=== PATIENT | male | born 1965 | race African-American/Black ===

== ENCOUNTER 2020-10-20 14:56 | Outpatient (REF) | payer OTHER, SELFPAY ==
--- NOTE | ~2020-10-20 | XR_ITS ---
EXAMINATION: XR SHOULDER, LEFT XR SHOULDER, RIGHT CLINICAL INFORMATION: Bilateral shoulder pain. COMPARISON: None TECHNIQUE: Four views of each shoulder. FINDINGS: LEFT SHOULDER: Four views of the left shoulder do not demonstrate any evidence of acute fracture or dislocation. No evidence of calcific tendinitis. There is minimal spurring inferior glenohumeral joint. Acromioclavicular joint appears unremarkable. RIGHT SHOULDER: Four views of the right shoulder do not demonstrate any evidence of acute fracture or dislocation. No calcific tendinitis. Acromioclavicular joint appears unremarkable. No widening of the coracoclavicular space is seen. XR/XR shoulder LT min 2V IMPRESSION: No significant bony abnormality of the left or right shoulder.
--- NOTE | ~2020-10-20 | XR_ITS ---
EXAMINATION: XR SHOULDER, LEFT XR SHOULDER, RIGHT CLINICAL INFORMATION: Bilateral shoulder pain. COMPARISON: None TECHNIQUE: Four views of each shoulder. FINDINGS: LEFT SHOULDER: Four views of the left shoulder do not demonstrate any evidence of acute fracture or dislocation. No evidence of calcific tendinitis. There is minimal spurring inferior glenohumeral joint. Acromioclavicular joint appears unremarkable. RIGHT SHOULDER: Four views of the right shoulder do not demonstrate any evidence of acute fracture or dislocation. No calcific tendinitis. Acromioclavicular joint appears unremarkable. No widening of the coracoclavicular space is seen. XR/XR shoulder RT min 2V IMPRESSION: No significant bony abnormality of the left or right shoulder.
== END 2020-10-20 14:57 | disposition home or self-care (01) ==
LOC: HO.HMGCX 14:56
PROVIDERS: PCP Internal Medicine; Visit Provider Internal Medicine
DX: M25.511 Pain in right shoulder (principal); M25.512 Pain in left shoulder
CPT/HCPCS: 73030

== ENCOUNTER 2021-01-07 08:00 | Outpatient (RCR) | payer OTHER, SELFPAY ==
--- NOTE | 2020-11-17 15:49 | MHC.PT.EP ---
[facility] [place] Office [place] Office [place] Office [address] Ella Lofton [address] [phone] F: [phone] F: [phone] F: [phone] F: [phone] Physical Therapy Plan of Care Date of Evaluation: Date of Surgery: Diagnosis: This is 55 yo male presenting to skilled PT with a script for B shoulder pain Assessment: Patient complains of B shoulder pain, R > L on and off for the past 4 months. He denies injury. Pain increases with use and when sleeping. Pain is located at the R anterior shoulder/GHJ (sometimes sharp and sometimes achy) and can radiate into the forearm at times (numbness). Denies hand symptoms. RHD. He reports that he attempts some exercises such as bicep curls and push ups and this bothers him. Assessment reveals pain that ranges up to a 6/10 (R shoulder mainly). He demos decreased B shoulder ROM, decreased R shoulder and scapular strength, impaired GHJ mobility with decreased postural awareness (anterior GHJ, rounded shoulders and forward head) as well as gross functional decline with reaching [place], work related tasks (driving) and sleeping at night. He is a good candidate for skilled PT 2x/wk for 5wks. Frequency and Duration: The patient will be seen 2x/wk for 5wks Short Term Goals: I in HEP Improve AROM by at least 10 degs Demo proper SRD with posture and ther-ex program Retirement Goals: Tolerate sleeping on his R side without pain or waking from symptoms 5/5 shoulder and scapular strength Improve SPADI by 10 points Treatment Plan: Modalities to reduce pain, spasms and effusion. Manual therapy to restore motion and function. Therapeutic exercise to improve strength and flexibility. Neuromuscular re-education for posture and balance. Therapeutic activities to return to functional activities of daily living. Electronically signed by: Nilsa Ibrahim PT Please sign and return to therapist. Thank you for your referral.
--- NOTE | 2021-01-07 08:52 | MHC.PT.DC ---
[facility] [place] Office [place] [facility] [place] Office [address] Ella Lofton [address] [phone] F: [phone] F: [phone] F: [phone] F: [phone] Physical Therapy Discharge Report Diagnosis: This is 55 yo male presenting to skilled PT with a script for B shoulder pain Date of Surgery: Date of Evaluation: 11/17/20 Date of Discharge: 01/07/21 Treatments to Date: 6 Cancellations to Date: 0 No Shows to Date: 0 Discharge Status: Achieved Goals Improved Function Independent with HEP Patient Elected to Stop Discharge Summary: 01/07: Patient demos good ROM and strengthening. He has HEP to continue at home. In general he is improving and ready for DC. Pain has improved and he has improved his posture at work. DC to HEP. Electronically signed by: Nilsa Ibrahim PT Please sign and return to therapist. Thank you for your referral.
== END 2021-03-02 09:03 | disposition home or self-care (01) ==
LOC: HO.PTCHIC 08:00
PROVIDERS: PCP Internal Medicine; Visit Provider Internal Medicine
DX: M25.511 Pain in right shoulder (principal); M25.512 Pain in left shoulder
CPT/HCPCS: 97014; 97110; 97140; 97162

== ENCOUNTER 2021-04-13 08:00 | Outpatient (RCR) | payer OTHER, SELFPAY ==
--- NOTE | 2021-03-02 09:51 | MHC.PT.EP ---
[facility] [place] Office [place] Office [place] Office [address] Lofton [address] [phone] F: [phone] F: [phone] F: [phone] F: [phone] Physical Therapy Plan of Care Date of Evaluation: Date of Surgery: Diagnosis: This is a 55 yo male presenting to skilled PT with a script for pain in R knee Assessment: This is a 55 yo male presenting to skilled PT with a script for pain in R knee. Patient complains of right knee pain after he twisted it walking down the stairs about 2 weeks ago. He reports that the MD wanted to remove fluid but patient reports he was too nervous. Pain is located across the anterior aspect but mainly medially, described as achiness. Pain increases with standing, walking; any weightbearing. He reports that he wakes from pain on occasion and has some numbness at the posterior aspect of the knee. He has been doing stairs laterally. He also has a R shoulder injury (through work, seeing ortho for this). Assessment reveals pain that ranges up to a 8/10. He demos decreased knee and hip ROM, decreased knee and hip strength, impaired gait pattern, impaired joint mobility with excessive fluid noted as well as gross functional decline with weightbearing activities including stairs, walking and standing. He is a good candidate for skilled PT 2x/wk for 5wks. Frequency and Duration: The patient will be seen 2x/wk for 5wks Short Term Goals: I in HEP Demo full knee ROM Improve swelling to normal B Group Home Goals: Improve hip and knee strength to at least 5/5 Return to work in full Demo proper squat and lift techniques without pain Sleep through the night without waking from pain Treatment Plan: Modalities to reduce pain, spasms and effusion. Manual therapy to restore motion and function. Therapeutic exercise to improve strength and flexibility. Neuromuscular re-education for posture and balance. Therapeutic activities to return to functional activities of daily living. Electronically signed by: Nilsa Ibrahim PT Please sign and return to therapist. Thank you for your referral.
--- NOTE | 2021-04-20 07:45 | MHC.PT.DC ---
[facility] [place] Office [place] Office [place] Office [address] Ella Lofton [address] [phone] F: [phone] F: [phone] F: [phone] F: [phone] Physical Therapy Discharge Report Diagnosis: This is a 55 yo male presenting to skilled PT with a script for pain in R knee Date of Surgery: Date of Evaluation: 03/02/21 Date of Discharge: 04/13/21 Treatments to Date: 6 Cancellations to Date: 0 No Shows to Date: 0 Discharge Status: Achieved Goals Improved Function Independent with HEP Patient Elected to Stop Discharge Summary: Patient reporting to PT ready for DC as he would like to start working on his shoulder. His knee has improved in terms of swelling and edema, ROM (WNL flexion and extension), strength of hip and knee WFL and patella mobility which has improved in tracking and joint stability. He is I in his HEP and demos a normal gait pattern. DC to HEP and patient to return to clinic for evaluation of his shoulder. Electronically signed by: Nilsa Ibrahim, PT Please sign and return to therapist. Thank you for your referral.
== END 2021-04-20 07:45 | disposition home or self-care (01) ==
LOC: HO.PTCHIC 08:00
PROVIDERS: PCP Internal Medicine; Visit Provider Internal Medicine
DX: M25.561 Pain in right knee (principal)
CPT/HCPCS: 97110; 97140; 97162

== ENCOUNTER 2021-05-05 08:06 | Outpatient (REF) | payer OTHER, SELFPAY ==
[2021-05-05 11:26] LABS: Hematocrit 41.7 % (42.0-52.0); Hemoglobin 13.4 g/dl (14.0-18.0); Mean Corpuscular HGB Conc 32.1 g/dl (31.0-36.0); Mean Corpuscular Hemoglobin 27.5 pg (27.0-33.0); Mean Corpuscular Volume 85.5 fL (80.0-98.0); Mean Platelet Volume 12.3 fL (9.4-12.4); Platelet Count 179 X10*3/uL (160-400); Red Blood Count 4.88 X10*6/uL (4.60-5.80); Red Cell Distribution Width 14.6 % (11.0-16.0); White Blood Count 3.1 X10*3/uL (4.8-10.8)
[2021-05-05 11:36] LABS: Appearance Urine CLEAR; Color Urine YELLOW; Glucose Urine UA NEG (NEG); Leukocyte Esterase Urine NEG (NEG); Nitrite Urine NEG (NEG); Specific Gravity - Urine 1.025 (1.005-1.025); Urine Blood NEG (NEG); Urine Ketones NEG (NEG); Urine Protein NEG (NEG-TRACE)
[2021-05-05 11:54] LABS: RBC Urine 0-2 /HPF (0); WBC Urine 0 /HPF (0-4)
[2021-05-05 13:00] LABS: CT PCR NOT DETECTED (Not Detect.); NG PCR NOT DETECTED (Not Detect.)
[2021-05-05 14:08] LABS: Alanine Aminotransferase 46 U/L (0-40); Albumin Level 4.1 g/dL (3.5-5.0); Alkaline Phosphatase 75 U/L (39-117); Anion Gap 10 (12-20); Aspartate Amino Transferase 30 U/L (5-37); Bilirubin Total 0.6 mg/dL (0.0-1.0); Carbon Dioxide 29 mmol/L (22-29); Chloride 104 mmol/L (96-108); Cholesterol 213 mg/dL; Estimated Glomerular Filt Rate > 60; Glucose Fasting 113 mg/dL (60-99); HDL Cholesterol 39 mg/dL; LDL Cholesterol Calculated 141 mg/dl; Sodium 139 mmol/L (135-145); Total Protein 8.2 g/dL (6.5-8.0); Triglycerides 167 mg/dL
[2021-05-05 14:27] LABS: Prostate Specific Antigen Scr 0.12 ng/mL (<0.05-4.0)
[2021-05-05 15:01] LABS: Blood Urea Nitrogen 10 mg/dL (9-16); Calcium 9.7 mg/dL (8.4-10.2); Potassium 4.1 mmol/L (3.3-5.1)
[2021-05-06 09:50] LABS: HIV AB/AG Nonreactive (Nonreactive); HIV Num 1 0.07 S/CO (0.00-0.99)
[2021-05-07 08:45] LABS: Syphilis Screen Reactive (Nonreactive)
[2021-05-14 13:19] LABS: T.Pallidum Particle Agg Test Reactive (Nonreactive)
[2021-06-09 10:03] LABS: RPR Quantitative Reactive 1:8 (Nonreactive)
== END 2021-05-05 08:07 | disposition home or self-care (01) ==
LOC: HO.HMGCLDS 08:06
PROVIDERS: PCP Internal Medicine; Visit Provider Internal Medicine
DX: Z00.00 Encounter for general adult medical examination without abnormal findings (principal)
CPT/HCPCS: 36415; 80053; 80061; 81001; 84153; 85027; 86592; 86780; 87389; 87491; 87591

== ENCOUNTER 2021-05-21 09:45 | Outpatient (REF) | payer OTHER, SELFPAY | END 2021-05-21 09:46 | disposition home or self-care (01) | LOC: HO.MDS 09:45 | PROVIDERS: PCP Internal Medicine; Visit Provider Internal Medicine | DX: A53.9 Syphilis, unspecified (principal) | CPT/HCPCS: 96372; J0561 ==

== ENCOUNTER 2021-05-28 09:20 | Outpatient (REF) | payer OTHER, SELFPAY | END 2021-05-28 09:21 | disposition home or self-care (01) | LOC: HO.MDS 09:20 | PROVIDERS: Visit Provider Internal Medicine | DX: A53.9 Syphilis, unspecified (principal) | CPT/HCPCS: 96372; J0561 ==

== ENCOUNTER 2021-06-04 09:20 | Outpatient (REF) | payer OTHER, SELFPAY | END 2021-06-04 09:21 | disposition home or self-care (01) | LOC: HO.MDS 09:20 | PROVIDERS: Visit Provider Internal Medicine | DX: A53.9 Syphilis, unspecified (principal) | CPT/HCPCS: 96372; J0561 ==

== ENCOUNTER 2021-08-11 14:58 | Outpatient (REF) | payer OTHER, SELFPAY ==
[2021-08-11 16:50] LABS: Alanine Aminotransferase 20 U/L (0-40); Albumin Level 4.2 g/dL (3.5-5.0); Alkaline Phosphatase 57 U/L (39-117); Anion Gap 14 (12-20); Aspartate Amino Transferase 20 U/L (5-37); Bilirubin Total 0.6 mg/dL (0.0-1.0); Blood Urea Nitrogen 11 mg/dL (9-16); Carbon Dioxide 27 mmol/L (22-29); Chloride 106 mmol/L (96-108); Cholesterol 203 mg/dL; Estimated Glomerular Filt Rate > 60; Glucose Fasting 101 mg/dL (60-99); HDL Cholesterol 38 mg/dL; LDL Cholesterol Calculated 130 mg/dl; Potassium 4.8 mmol/L (3.3-5.1); Sodium 142 mmol/L (135-145); Total Protein 8.2 g/dL (6.5-8.0); Triglycerides 178 mg/dL
[2021-08-11 16:55] LABS: Estimated Average Glucose 126 mg/dL
[2021-08-12 08:53] LABS: HIV AB/AG Nonreactive (Nonreactive)
[2021-08-12 09:08] LABS: HIV Num 1 0.06 S/CO (0.00-0.99)
== END 2021-08-11 14:59 | disposition home or self-care (01) ==
LOC: HO.HMGCLDS 14:58
PROVIDERS: PCP Internal Medicine; Visit Provider Internal Medicine
DX: Z00.01 Encounter for general adult medical examination with abnormal findings (principal); Z11.4 Encounter for screening for human immunodeficiency virus [HIV]; E78.5 Hyperlipidemia, unspecified; A53.9 Syphilis, unspecified
CPT/HCPCS: 36415; 80053; 80061; 83036; 87389

== ENCOUNTER 2021-10-22 15:16 | Outpatient (REF) | payer OTHER, SELFPAY ==
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
--- NOTE | ~2021-10-22 | XR_ITS ---
EXAMINATION: XR FOOT, LEFT CLINICAL INFORMATION: Pain. COMPARISON: None TECHNIQUE: AP, lateral, and oblique views of the left foot. FINDINGS: No acute fracture or malalignment. No significant degenerative changes. Mild diffuse nonspecific soft tissue swelling. No unexpected radiopaque foreign bodies. XR/XR foot LT min 3V IMPRESSION: No acute osseous abnormality. Nonspecific soft tissue swelling.
== END 2021-10-22 15:17 | disposition home or self-care (01) ==
LOC: HO.HMGCX 15:16
DX: R52 Pain, unspecified (principal)
CPT/HCPCS: 73564; 73630

== ENCOUNTER 2021-11-09 12:11 | Outpatient (REF) | payer OTHER, SELFPAY ==
[2021-11-10 06:07] LABS: Syphilis Screen Reactive (Nonreactive)
[2021-11-18 10:53] LABS: RPR Quantitative Non-Reactive (Nonreactive); T.Pallidum Particle Agg Test Reactive (Nonreactive)
== END 2021-11-09 12:12 | disposition home or self-care (01) ==
LOC: HO.HMGCLDS 12:11
PROVIDERS: PCP Internal Medicine; Visit Provider Internal Medicine
DX: A53.9 Syphilis, unspecified (principal)
CPT/HCPCS: 36415; 86592; 86780

== ENCOUNTER 2022-04-15 10:40 | Outpatient (REF) | payer OTHER, SELFPAY ==
--- NOTE | ~2022-04-15 | XR_ITS ---
EXAMINATION: XR HAND, RIGHT CLINICAL INFORMATION: Suspected foreign body of right hand COMPARISON: None TECHNIQUE: PA, lateral, and oblique views of the right hand. FINDINGS: Bones have normal alignment within the hand and wrist. No acute fracture or subluxation. The joint spaces are normal. No focal soft tissue swelling or radiopaque foreign body. XR/XR hand RT min 3V IMPRESSION: Normal right hand. No radiopaque foreign body.
== END 2022-04-15 10:41 | disposition home or self-care (01) ==
LOC: HO.HMGCLDS 10:40
PROVIDERS: PCP Internal Medicine; Visit Provider Internal Medicine
DX: S60.551A Superficial foreign body of right hand, initial encounter (principal); X58.XXXA Exposure to other specified factors, initial encounter; Y93.9 Activity, unspecified; Y92.9 Unspecified place or not applicable; Y99.9 Unspecified external cause status
CPT/HCPCS: 73130

== ENCOUNTER 2022-06-02 10:05 | Outpatient (REF) | payer OTHER, SELFPAY ==
[2022-06-02 11:25] LABS: MANUAL DIFF FLAG NO
[2022-06-02 11:45] LABS: Appearance Urine Clear; Color Urine Yellow; Glucose Urine UA Negative (Negative); Leukocyte Esterase Urine Negative (Negative); Nitrite Urine Negative (Negative); PH 6.5 (5.0-9.0); Urine Blood Negative (Negative); Urine Ketones Negative (Negative); Urine Protein Negative (Neg-Trace)
[2022-06-02 11:49] LABS: Bacteria Urine None Seen (None Seen); Hyaline Casts Urine 0-2 /LPF (0-2); RBC Urine 0-2 /HPF (0-2); Squamous Epithelial Cell Urine 0-2 /HPF (0-2); WBC Urine 0-5 /HPF (0-5)
[2022-06-02 12:01] LABS: Basophils Percent Auto 0.2 % (0-2); Eosinophils Percent Auto 0.7 % (0-4); Hemoglobin 13.7 g/dl (14.0-18.0); Lymphocytes Absolute Auto 1.9 X10*3/uL (1.2-4.9); Lymphocytes Percent Auto 44.6 % (20-40); Mean Corpuscular HGB Conc 32.6 g/dl (31.0-36.0); Mean Corpuscular Hemoglobin 27.8 pg (27.0-33.0); Mean Corpuscular Volume 85.2 fL (80.0-98.0); Mean Platelet Volume 12.3 fL (9.4-12.4); Monocytes Absolute Auto 0.3 X10*3/uL (0.1-1.2); Monocytes Percent Auto 6.7 % (2-11); Neutrophils Percent Auto 47.8 % (45-73); Platelet Count 221 X10*3/uL (160-400); Red Blood Count 4.93 X10*6/uL (4.60-5.80); Red Cell Distribution Width 13.7 % (11.0-16.0); White Blood Count 4.2 X10*3/uL (4.8-10.8)
[2022-06-02 12:17] LABS: Estimated Average Glucose 126 mg/dL
[2022-06-02 16:34] LABS: Alanine Aminotransferase 14 U/L (0-40); Albumin Level 4.1 g/dL (3.5-5.0); Alkaline Phosphatase 58 U/L (39-117); Anion Gap 16 (12-20); Aspartate Amino Transferase 17 U/L (5-37); Bilirubin Total 0.6 mg/dL (0.0-1.0); Blood Urea Nitrogen 14 mg/dL (9-16); Calcium 9.5 mg/dL (8.4-10.2); Carbon Dioxide 26 mmol/L (22-29); Chloride 104 mmol/L (96-108); Cholesterol 196 mg/dL; Estimated Glomerular Filt Rate > 60; Glucose Fasting 99 mg/dL (60-99); HDL Cholesterol 42 mg/dL; LDL Cholesterol Calculated 135 mg/dl; PSA,Total (Free>4and<10) 0.16 ng/mL (0.00-4.00); Potassium 4.1 mmol/L (3.3-5.1); Sodium 142 mmol/L (135-145); Total Protein 7.6 g/dL (6.5-8.0); Triglycerides 98 mg/dL
[2022-06-03 05:09] LABS: HIV AB/AG Nonreactive (Nonreactive)
[2022-06-03 05:40] LABS: Syphilis Screen Reactive (Nonreactive)
[2022-06-11 12:02] LABS: RPR Quantitative Non-Reactive (Nonreactive); T.Pallidum Particle Agg Test Reactive (Nonreactive)
== END 2022-06-02 10:06 | disposition home or self-care (01) ==
LOC: HO.HMGCLDS 10:05
PROVIDERS: PCP Internal Medicine; Visit Provider Internal Medicine
DX: Z12.5 Encounter for screening for malignant neoplasm of prostate (principal); A53.9 Syphilis, unspecified; R73.9 Hyperglycemia, unspecified; E78.5 Hyperlipidemia, unspecified
CPT/HCPCS: 36415; 80053; 80061; 81001; 83036; 84153; 85025; 86592; 86780; 87389

== ENCOUNTER 2022-09-20 08:00 | Outpatient (REF) | payer OTHER, SELFPAY ==
--- NOTE | ~2022-09-20 | XR_ITS ---
EXAMINATION: XR FOOT, RIGHT CLINICAL INFORMATION: Superficial foreign body. COMPARISON: None available. TECHNIQUE: AP, lateral, and oblique views of the right foot. FINDINGS: There is no acute fracture or dislocation. The joint spaces are unremarkable. The tarsal bones are normally aligned. A curvilinear radiopaque foreign body measuring approximately 6 mm is seen in the superficial plantar soft tissues apparently superficial to the level the distal head of the fifth metatarsal without surrounding abnormality. XR/XR foot RT min 3V IMPRESSION: 1. No acute osseous abnormality. No significant degenerative changes. 2. 6 mm curvilinear radiopaque foreign body in the superficial plantar soft tissues apparently superficial to the distal head of the fifth metatarsal.
--- NOTE | ~2022-09-20 | XR_ITS ---
EXAMINATION: XR FOOT, RIGHT CLINICAL INFORMATION: Superficial foreign body. COMPARISON: None available. TECHNIQUE: AP, lateral, and oblique views of the right foot. XR/XR foot RT 2V FINDINGS/IMPRESSION: The radiopaque foreign body seen in the oblique projection on the previous study is no longer visualized however the curvilinear density seen in the lateral projection appears similar. It is unclear if this is a second foreign body. Correlate with physical exam
== END 2022-09-20 08:01 | disposition home or self-care (01) ==
LOC: HO.HMGCX 08:00
PROVIDERS: PCP Internal Medicine; Visit Provider Internal Medicine
DX: S90.851A Superficial foreign body, right foot, initial encounter (principal); X58.XXXA Exposure to other specified factors, initial encounter; Y93.9 Activity, unspecified; Y92.9 Unspecified place or not applicable; Y99.9 Unspecified external cause status
CPT/HCPCS: 73620; 73630

== ENCOUNTER 2022-10-17 14:08 | Outpatient (AMB) | payer OTHER, SELFPAY ==
--- NOTE | 2022-10-17 14:59 | MHC.OFFWIV ---
Intake Vital Signs 10/17/22 15:00 Height 5 ft 11 in BP 112/70 Blood Pressure Location Lt brachial Pulse 96 Pulse Source Pulse Oximeter Temp 96.7 F L Temp Source Temporal Artery Scan Pulse Oximetry (%) 98 Oxygen Delivery Method Room Air Intake Visit Reasons: EST/left knee pain/[phone] Patient Tobacco Use Status: Never used Tobacco Allergies No Known Allergies [No Known Allergies*] Allergy (Verified 10/25/22 06:18) Medication List - Last Reconciled 10/25/22 by Eric Luna MD No Known Home Meds Do you need a note to return to daycare/school/sports/work: No HPI EST/left knee pain/[phone] HPI Details 57-year-old male presents to the office for a sick visit. Patient reports pain in the left knee. He has aggravating an old injury. He reports swelling in the knee and is walking with a limp PFS Medical History Annual physical exam Gastroesophageal reflux disease without esophagitis Hyperglycemia Hyperlipidemia Pain Right knee injury Shoulder pain, bilateral Syphilis Family History Mother No problems noted. Father No problems noted. Social History Housing: House Patient Tobacco Use Status: Never used Tobacco e-Cigarette/Vaping Use: Never Used Current occupational status: employed Cognitive needs: No Hearing needs: No Vision needs: No Physical Exam Vital Signs: Last Vital Signs Temp 96.7 F L 10/17/22 15:00 Pulse 96 10/17/22 15:00 BP 112/70 10/17/22 15:00 Pulse Ox 98 10/17/22 15:00 Oxygen Delivery Method Room Air 10/17/22 15:00 Extrem Other: Knee: Minimal swelling in the suprapatellar area. No joint line tenderness. Full range of motion. Gait is normal Assessment & Plan Assessment & Plan (1) Sprain of knee: Code(s): S83.90XA - Sprain of unspecified site of unspecified knee, initial encounter Plan: Rest and reassurance. Note for work provided. Coding Level of Care Code Est Pt Level 3 (84358) Diagnoses Sprain of knee S83.90XA
[2022-10-17 15:00] VITALS: BP 112/70; PULSE 96; TEMP 35.9; O2SAT 98
== END 2022-10-17 16:44 | disposition home or self-care (01) ==
PROVIDERS: PCP Internal Medicine; Visit Provider Internal Medicine
DX: S83.90XA Sprain of unspecified site of unspecified knee, initial encounter (principal)
CPT/HCPCS: 99213

== ENCOUNTER 2023-08-04 11:40 | Outpatient (AMB) | payer OTHER, SELFPAY ==
[2023-08-04 11:43] VITALS: BP 120/76; PULSE 70; O2SAT 98; BMI 27.1
--- NOTE | 2023-08-04 11:43 | A.OFFPC_ITS ---
Vital Signs 08/04/23 11:43 Height 5 ft 11 in Weight 194 lb BMI 27.1 BP 120/76 Blood Pressure Location Lt brachial Position Sitting Pulse 70 Pulse Source Pulse Oximeter Pulse Oximetry (%) 98 Oxygen Delivery Method Room Air Intake Visit Reasons: Annual Physical Intake Note: Pt is here today for PE. Allergies No Known Allergies [No Known Allergies*] Allergy (Verified 08/04/23 11:44) Medication List - Last Reconciled 08/04/23 by Judith Russo MD No Known Home Meds Tobacco use date assessed: 08/04/23 Dental Screening Dental Screen Date: 08/04/23 Did you have a dental visit in the last 12 months?: Yes Did you have a dental problem in the last 6 months where you did not have access to dental care?: No Was dental information given to patient?: Patient has dentist HPI Annual Physical HPI Details Patient presents for physical [facility] Medical History Pain Hyperglycemia Hyperlipidemia Syphilis Annual physical exam Right knee injury Shoulder pain, bilateral Gastroesophageal reflux disease without esophagitis Surgical History No pertinent past surgical history Family History Mother No problems noted. Father No problems noted. Social History Housing: House Patient Tobacco Use Status: Never used Tobacco e-Cigarette/Vaping Use: Never Used service: No Current occupational status: employed Cognitive needs: No Hearing needs: No Vision needs: No Questionnaire PHQ-9 Over the last 2 weeks, how often have you been bothered by any of the following problems? 1. Little interest or pleasure in doing things: not at all 2. Feeling down, depressed, or hopeless: not at all 3. Trouble falling or staying asleep, or sleeping too much: not at all 4. Feeling tired or having little energy: not at all 5. Poor appetite or overeating: not at all 6. Feeling bad about yourself - or that you are a failure or have let yourself or your family down: not at all 7. Trouble concentrating on things, such as reading the newspaper or watching television: not at all 8. Moving or speaking so slowly that other people could have noticed. Or the opposite - being so fidgety or restless that you have been moving around a lot more than usual: not at all 9. Thoughts that you would be better off or of hurting yourself in some way: not at all Total score: 0 Depression Screening Interpretation: Negative Depression Screening Done: Yes Source: Developed by Drs. Kevin Norwood, Kourtney Marshall, Pierre Byrne and colleagues, with an educational lily from [employer]. Thrive Questionnaire Date Thrive assessed: 08/04/23 I am a: Patient What is your living situation today?: I have a steady place to live Within the past 12 months, did the food you bought not last and you didn't have the money to get more?: Never true Within the past 12 months, did you worry whether your food would run out before you got money to buy more?: Never true Do you have trouble paying for medicines?: No Do you have trouble getting transportation to medical appointments?: No Do you have trouble paying your heating and electricity bill?: No Do you have trouble taking care of your child, family member or friend?: No Do you have trouble with day-to-day activities such as bathing, preparing meals, shopping, managing finances, etc.?: No Are you currently unemployed and looking for a job?: No Are you interested in more education?: No Please select the resources that you would like help with: None THRIVE Score: 0 AUDIT C Alcohol Use Questionnaire (AUDIT-C) 1. How often do you have a drink containing alcohol?: Monthly or less 2. How many drinks containing alcohol do you have on a typical day when you are drinking?: 1 or 2 3. How often do you have six or more drinks on one occasion?: Never Total Score: 1 SALIMA-7 AMB Questionnaire SALIMA-7 Date SALIMA - 7 assessed: 08/04/23 Feeling nervous, anxious, or on edge: 0 = Not at all Not being able to stop or control worryin = Not at all Worrying too much about different things: 0 = Not at all Trouble relaxin = Not at all Being so restless that it is hard to sit still: 0 = Not at all Becoming easily annoyed or irritable: 0 = Not at all Feeling afraid as if something awful might happen: 0 = Not at all Total SALIMA-7 score (0-4 normal; 5-9 mild; 10-14 moderate; 15-21 severe): 0 Source: Developed by Drs. Kevin Norwood, Kourtney Marshall, Pierre Byrne and colleagues, with an educational lily from [employer]. Review of Systems Const All systems reviewed & are unremarkable except as noted in HPI and below Eyes Reports no additional complaints ENT Reports no additional complaints Card Reports no additional complaints Resp Reports no additional complaints GI Reports no additional complaints Reports no additional complaints Physical exam (Primary Care) Vital Signs: Last Vital Signs Pulse 70 08/04/23 11:43 BP 120/76 08/04/23 11:43 Pulse Ox 98 08/04/23 11:43 Oxygen Delivery Method Room Air 08/04/23 11:43 BMI result Body Mass Index 27.1 Tobacco/Smoking Status: Tobacco use Status Tobacco use date assessed 08/04/23 08/04/23 11:47 Patient Tobacco Use Status Never used Tobacco 08/04/23 11:47 e-Cigarette/Vaping Use Never Used 08/04/23 11:47 PHQ-9: PHQ-9 Score PHQ-9: Total score 0 08/04/23 11:47 Depression Screening Interpretation: Negative Thrive Assessment: Date of Thrive Assessment Date Thrive assessed 08/04/23 08/04/23 11:47 Const General: no acute distress HENMT Head: Yes normal to inspection Ears: hearing grossly normal bilaterally Mouth: Normal oral and palatal mucosa present Throat: Yes posterior oropharynx normal Eyes General: appearance normal, both eyes and all related structures Neck Neck: Yes no lymphadenopathy and Yes supple Resp Effort & Inspection: normal respiratory effort Auscultation: clear to auscultation bilaterally Cardio Rhythm: regular rhythm Heart sounds: S1 normal heart sound present and S2 normal heart sound present GI Inspection: Yes normal to inspection Palpation (GI): Soft to palpation Percussion: Yes normal to percussion Auscultation: normal bowel sounds Assessment and Plan Assessment & Plan (1) Hyperglycemia: Code(s): R73.9 - Hyperglycemia, unspecified Plan: Continue ADA diet increase physical activity check A1c (2) Hyperlipidemia: Code(s): E78.5 - Hyperlipidemia, unspecified Plan: Continue low-cholesterol diet (3) Syphilis: Comment: latent, s/p 3 doses of PCN 05/18, recheck RPR IN 6 months and 1 year Code(s): A53.9 - Syphilis, unspecified Plan: Check RPR (4) Annual physical exam: Code(s): Z00.00 - Encounter for general adult medical examination without abnormal findings Plan: Well-balanced diet regular physical activity discussed with the patient. Physical in 1 year patient colonoscopy in 2019, and needs a repeat in 5 years Orders: Orders Lipid Panel Today A53.9 - Syphilis, unspecified, E78.5 - Hyperlipidemia, unspecified, R73.9 - Hyperglycemia, unspecified, Z00.00 - Encounter for general adult medical examination without abnormal findings Microalbumin, Random (w Creat) Today A53.9 - Syphilis, unspecified, E78.5 - H yperlipidemia, unspecified, R73.9 - Hyperglycemia, unspecified, Z00.00 - Encounter for general adult medical examination without abnormal findings Syphilis Screen Today A53.9 - Syphilis, unspecified, E78.5 - Hyperlipidemia, unspecified, R73.9 - Hyperglycemia, unspecified, Z00.00 - Encounter for general adult medical examination without abnormal findings HIV Ab/Ag Today A53.9 - Syphilis, unspecified, E78.5 - Hyperlipidemia, unspecified, R73.9 - Hyperglycemia, unspecified, Z00.00 - Encounter for general adult medical examination without abnormal findings CT NG by PCR Today A53.9 - Syphilis, unspecified, E78.5 - Hyperlipidemia, unspecified, R73.9 - Hyperglycemia, unspecified, Z00.00 - Encounter for general adult medical examination without abnormal findings UA w Microscopic Today A53.9 - Syphilis, unspecified, E78.5 - Hyperlipidemia, unspecified, R73.9 - Hyperglycemia, unspecified, Z00.00 - Encounter for general adult medical examination without abnormal findings RPR Monitor reflex titer Today Z00.00 - Encounter for general adult medical examination without abnormal findings Comprehensive [place]. Panel Fast Today A53.9 - Syphilis, unspecified, E78.5 - Hyperlipidemia, unspecified, R73.9 - Hyperglycemia, unspecified, Z00.00 - Encounter for general adult medical examination without abnormal findings Complete Blood Count Auto Diff Today A53.9 - Syphilis, unspecified, E78.5 - Hyperlipidemia, unspecified, R73.9 - Hyperglycemia, unspecified, Z00.00 - Encounter for general adult medical examination without abnormal findings Hemoglobin A1c Today A53.9 - Syphilis, unspecified, E78.5 - Hyperlipidemia, unspecified, R73.9 - Hyperglycemia, unspecified, Z00.00 - Encounter for general adult medical examination without abnormal findings PSA,Total (Free>4and<10) Today A53.9 - Syphilis, unspecified, E78.5 - Hyperlipidemia, unspecified, R73.9 - Hyperglycemia, unspecified, Z00.00 - Encounter for general adult medical examination without abnormal findings Coding Level of Care Code Est Pt Prev Care 40-64y(01185) Diagnoses Hyperglycemia R73.9 Hyperlipidemia E78.5 Syphilis A53.9 Annual physical exam Z00.00
== END 2023-08-04 12:10 | disposition home or self-care (01) ==
PROVIDERS: PCP Internal Medicine; Visit Provider Internal Medicine
DX: R73.9 Hyperglycemia, unspecified (principal); E78.5 Hyperlipidemia, unspecified; A53.9 Syphilis, unspecified; Z00.00 Encounter for general adult medical examination without abnormal findings
CPT/HCPCS: 99396

== ENCOUNTER 2023-08-04 12:11 | Outpatient (REF) | payer OTHER, SELFPAY ==
[2023-08-04 13:20] LABS: Appearance Urine Clear; Color Urine Yellow; Glucose Urine UA Negative (Negative); Leukocyte Esterase Urine Negative (Negative); Nitrite Urine Negative (Negative); PH 6.5 (5.0-9.0); Urine Blood Negative (Negative); Urine Ketones Negative (Negative); Urine Protein Negative (Neg-Trace)
[2023-08-04 13:20] LABS: Estimated Average Glucose 128 mg/dL; Hemoglobin A1c % 6.1 % (<6.0)
[2023-08-04 13:25] LABS: Basophils Percent Auto 0.3 % (0-2); Eosinophils Absolute Auto 0.1 X10*3/uL (0.0-0.4); Eosinophils Percent Auto 2.8 % (0-4); Hematocrit 39.6 % (42.0-52.0); Lymphocytes Percent Auto 61.7 % (20-40); MANUAL DIFF FLAG SCAN; Mean Corpuscular HGB Conc 32.8 g/dl (31.0-36.0); Mean Corpuscular Hemoglobin 28.1 pg (27.0-33.0); Mean Corpuscular Volume 85.5 fL (80.0-98.0); Mean Platelet Volume 10.5 fL (9.4-12.4); Monocytes Absolute Auto 0.2 X10*3/uL (0.1-1.2); Monocytes Percent Auto 7.6 % (2-11); Neutrophils Absolute Auto 0.9 x10*3/uL (2.0-8.3); Neutrophils Percent Auto 27.6 % (45-73); Platelet Count 172 X10*3/uL (160-400); Red Blood Count 4.63 X10*6/uL (4.60-5.80); Red Cell Distribution Width 13.7 % (11.0-16.0); SCAN SMEAR FLAG 1; White Blood Count 3.2 X10*3/uL (4.8-10.8)
[2023-08-04 13:26] LABS: Bacteria Urine None Seen (None Seen); Hyaline Casts Urine 0-2 /LPF (0-2); RBC Urine 0-2 /HPF (0-2); Squamous Epithelial Cell Urine 0-2 /HPF (0-2); WBC Urine 0-5 /HPF (0-5)
[2023-08-04 13:52] LABS: Creatinine Urine 162.81 mg/dL; Microalbum/Creatinine Ratio Ur 5.5 ug/mg cr (<30)
[2023-08-04 13:54] LABS: Alanine Aminotransferase 19 U/L (0-40); Albumin Level 4.1 g/dL (3.5-5.0); Alkaline Phosphatase 51 U/L (39-117); Anion Gap 13 (12-20); Aspartate Amino Transferase 22 U/L (5-37); Bilirubin Total 0.3 mg/dL (0.0-1.0); Blood Urea Nitrogen 12 mg/dL (9-16); Calcium 9.1 mg/dL (8.4-10.2); Carbon Dioxide 27 mmol/L (22-29); Chloride 105 mmol/L (96-108); Cholesterol 188 mg/dL (<200); Estimated Glomerular Filt Rate > 60; Glucose Fasting 107 mg/dL (60-99); HDL Cholesterol 44 mg/dL (>40); LDL Cholesterol Calculated 119 mg/dL (<100); Potassium 3.9 mmol/L (3.3-5.1); Sodium 141 mmol/L (135-145); Total Protein 7.8 g/dL (6.5-8.0); Triglycerides 125 mg/dL (<150)
[2023-08-04 14:04] LABS: SLIDE REVIEW VERIFIED
[2023-08-04 14:16] LABS: PSA,Total (Free>4and<10) 0.35 ng/mL (0.00-4.00)
[2023-08-07 08:16] LABS: Syphilis Screen Reactive (Nonreactive)
[2023-08-07 08:42] LABS: HIV AB/AG Nonreactive (Nonreactive); HIV Num 1 0.04 S/CO (0.00-0.99)
[2023-08-08 01:10] LABS: RPR Rapid Plasma Reagin NON-REACTIVE (NON-REACTIVE)
[2023-08-10 15:15] LABS: RPR Quantitative Non-Reactive (Nonreactive); T.Pallidum Particle Agg Test Reactive (Nonreactive)
== END 2023-08-04 12:12 | disposition home or self-care (01) ==
LOC: HO.HMGCLDS 12:11
PROVIDERS: PCP Internal Medicine; Visit Provider Internal Medicine
DX: Z00.00 Encounter for general adult medical examination without abnormal findings (principal); Z12.5 Encounter for screening for malignant neoplasm of prostate; R73.9 Hyperglycemia, unspecified; E78.5 Hyperlipidemia, unspecified; A53.9 Syphilis, unspecified
CPT/HCPCS: 36415; 80053; 80061; 81001; 82043; 82570; 83036; 84153; 85025; 86592; 86780; 87389

== ENCOUNTER 2024-11-04 15:35 | Outpatient (REF) | payer OTHER, SELFPAY ==
--- NOTE | ~2024-11-04 | XR_ITS ---
EXAMINATION: XR ANKLE 3 OR MORE VIEWS RIGHT HISTORY: Right ankle pain, swollen bump. COMPARISON: There are no prior studies available for comparison. FINDINGS: Three views of the right ankle are submitted. Osseous mineralization is normal. There is no fracture or dislocation. The joint spaces are preserved. There is focal soft tissue swelling over the medial aspect of the distal tibial metaphysis. XR/XR ankle RT min 3V IMPRESSION: Focal soft tissue swelling over the medial aspect of the distal tibial metaphysis. No osseous abnormality is identified. Electronically signed by: Kevin Wooten MD 11/05/2024 07:15 AM EDT
== END 2024-11-04 15:36 | disposition home or self-care (01) ==
LOC: HO.HMGCX 15:35
PROVIDERS: PCP Internal Medicine; Visit Provider Physician Assistant Medical
DX: M79.604 Pain in right leg (principal); M79.89 Other specified soft tissue disorders; M25.571 Pain in right ankle and joints of right foot
CPT/HCPCS: 73610

== ENCOUNTER 2024-11-04 15:35 | Outpatient (AMB) | payer OTHER, SELFPAY ==
[2024-11-04 15:36] VITALS: BP 106/70; PULSE 107; TEMP 36.7; O2SAT 96; BMI 26.9
--- NOTE | 2024-11-04 15:36 | AM.OFFWIN_ITS ---
Intake Vital Signs 11/04/24 15:36 Height 5 ft 11 in Weight 193 lb BMI 26.9 BP 106/70 Blood Pressure Location Rt brachial Position Sitting Pulse 107 H Pulse Source Pulse Oximeter Temp 98.1 F Temp Source Oral Pulse Oximetry (%) 96 Oxygen Delivery Method Room Air Intake Visit Reasons: EP-rt foot pain & swollen Intake Note: Patient presents with right ankle swelling ad pain times 3 weeks. 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 - Three weeks ago, he was moving furnitu re and sustained a hit to the leg, resulting in pain and a bump. - The pain is bearable, and he can walk without difficulty. - He is concerned about the persistent b ump and fears a fracture, but denies numbness, tingling, or pain in the ankle, foot, knee, or calf. - No leg edema is present, and he has no t taken any medication for the pain. - There was no bruising or abrasion at t he site of injury. Physical Exam General: Cooperative, healthy appearing, comfortable, no acute distress and well developed Orientation: Patient oriented x3 Respiratory: Normal respiratory effort and able to speak in complete sentences. Clear to auscultation bilaterally Cardiovascular: Regular rate and rhythm. Normal S1 and S2 Skin: No rashes or lesions noted. No abrasion or bruising noted. Neuro: Sensation is intact. Extremities: Normal to inspection except for a large bump on the medial aspect of the right lower leg. No leg edema noted. TTP of the right medial lower leg and ankle. FROM of the right ankle. FROM of the knee. Ambulates with steady gait. Strength is 5/5. Patient was informed and verbally consented to the use of an ambient scribe for clinic note documentation during this visit. [facility] Medical History Pain Hyperglycemia Hyperlipidemia Syphilis Annual physical exam Right knee injury Shoulder pain, bilateral Gastroesophageal reflux disease without esophagitis Surgical History No pertinent past surgical history Family History Mother No problems noted. Father No problems noted. Social History Housing: House Patient Tobacco Use Status: Never used Tobacco e-Cigarette/Vaping Use: Never Used service: No Current occupational status: employed Cognitive needs: No Hearing needs: No Vision needs: No Review of Systems Const All systems reviewed & are unremarkable except as noted in HPI and below Physical Exam Vital Signs: Last Vital Signs Temp 98.1 F 11/04/24 15:36 Pulse 107 H 11/04/24 15:36 BP 106/70 11/04/24 15:36 Pulse Ox 96 11/04/24 15:36 Oxygen Delivery Method Room Air 11/04/24 15:36 BMI result Body Mass Index 26.9 Results Reviewed Results Reviewed: Reviewed the xray in the office Assessment & Plan Assessment & Plan (1) Right leg pain: Code(s): M79.604 - Pain in right leg Plan Most likely a hematoma vs contusion vs fracture Plan - will order an x-ray - rest and elevate the leg - ice to the area - will call him with the results - can refer him to ortho if needed - follow up with PCP Coding Level of Care Code Est Pt Level 4 (77834) Diagnoses Right leg pain M79.604
--- OUTSIDE RECORDS SUMMARY | 2024-11-04 15:40 | XMS_ITS | Clinical Summary ---
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 Phone Unavailable Primary Care Provider Unavailabl e Social History Tobacco Use Types Packs/Day Years Used Date Smoking Tobacco: Never Assessed Sex and Gender Information Value Date Recorded Sex Assigned at Not on file Legal Sex Male 7:28 AM EST Gender Identity Not on file Sexual Orientation Not on file Plan of Treatment Health Maintenance Due Date Last Done Comments DTaP,Tdap,and Td Vaccines (1 - Tdap) 1986 Hepatitis B Vaccines (1 of 3 - 19+ 3-dose series) 1986 Pneumococcal Vaccine: 50+ Ye ars (1 of 1 - PCV) 2017 Zoster Vaccines (1 of 2) 2017 COVID-19 Vaccine ( - 2023-2 5 season) 2023 Depression Screening 03/27/2024 Influenza Vaccine (#1) 2024 HIB Vaccines Aged Out No longer eligi ble based on patient's age to complete this topic HPV Vaccines Aged Out No longer eligi ble based on patient's age to complete this topic Hepatitis A Vaccines Aged Out No long er eligible based on patient's age to complete this topic IPV Vaccines Aged Out No longer eligi ble based on patient's age to complete this topic MMR Vaccines Aged Out No longer eligi ble based on patient's age to complete this topic Meningococcal ACWY Vaccine Aged Out N o longer eligible based on patient's age to complete this topic Meningococcal B Vaccine Aged Out No l onger eligible based on patient's age to complete this topic RSV Immunization Patients Un ignacio 20 months Aged Out No longer eligible b ased on patient's age to complete this topic Varicella Vaccines Aged Out No longer eligible based on patient's age to complete this topic
== END 2024-11-04 16:41 | disposition home or self-care (01) ==
PROVIDERS: PCP Internal Medicine; Visit Provider Physician Assistant Medical
DX: M79.604 Pain in right leg (principal)

== ENCOUNTER → 2024-11-04 16:22 | Outpatient (BNV) | payer OTHER, SELFPAY | PROVIDERS: PCP Internal Medicine; Visit Provider Radiology Diagnostic Radiology | DX: M70.871 Other soft tissue disorders related to use, overuse and pressure, right ankle and foot (principal) | CPT/HCPCS: 73610 ==

== ENCOUNTER 2025-01-24 12:19 | Outpatient (REF) | payer OTHER, SELFPAY ==
[2025-01-24 16:11] LABS: Hematocrit 42.3 % (42.0-52.0); Hemoglobin 13.7 g/dl (14.0-18.0); Imm Gran Abs Auto 0.00 X10*3/uL (0.00-0.03); Imm Gran Pct Auto 0.0 % (0.0-0.4); Lymphocytes Absolute Auto 2.0 X10*3/uL (1.2-4.9); MANUAL DIFF FLAG SCAN; Mean Corpuscular HGB Conc 32.4 g/dl (31.0-36.0); Mean Corpuscular Hemoglobin 28.4 pg (27.0-33.0); Mean Corpuscular Volume 87.6 fL (80.0-98.0); NRBC Abs Auto 0.000 X10*3/uL (0.0-0.012); NRBC Pct Auto 0.0 /100WBC (0.0-0.2); Platelet Count 219 X10*3/uL (160-400); Red Blood Count 4.83 X10*6/uL (4.60-5.80); SCAN SMEAR FLAG 1; White Blood Count 3.1 X10*3/uL (4.8-10.8)
[2025-01-24 16:19] LABS: Hemoglobin A1C 150.0104 umol/L
[2025-01-24 16:19] LABS: Appearance Urine Clear; Glucose Urine UA Negative (Negative); PH 8.0 (5.0-9.0); Specific Gravity - Urine 1.025 (1.005-1.025); UMIC TRIGGER UA YES
[2025-01-24 16:24] LABS: Alanine Aminotransferase 22 U/L (0-40); Albumin Level 4.4 g/dL (3.5-5.0); Alkaline Phosphatase 54 U/L (39-117); Anion Gap 10 (12-20); Aspartate Amino Transferase 25 U/L (5-37); Blood Urea Nitrogen 12 mg/dL (9-16); Calcium 9.1 mg/dL (8.4-10.2); Carbon Dioxide 30 mmol/L (22-29); Chloride 103 mmol/L (96-108); Cholesterol 211 mg/dL (<200); Estimated Glomerular Filt Rate > 60; HDL Cholesterol 53 mg/dL (>40); Potassium 4.1 mmol/L (3.3-5.1); Sodium 139 mmol/L (135-145); Total Protein 8.0 g/dL (6.5-8.0); Triglycerides 130 mg/dL (<150)
[2025-01-24 16:44] LABS: PSA,Total (Free>4and<10) 0.14 ng/mL (0.00-4.00)
== END 2025-01-24 12:20 | disposition home or self-care (01) ==
LOC: HO.HMGCLDS 12:19
PROVIDERS: PCP Internal Medicine; Visit Provider Internal Medicine
DX: Z12.5 Encounter for screening for malignant neoplasm of prostate (principal); R93.3 Abnormal findings on diagnostic imaging of other parts of digestive tract; E78.5 Hyperlipidemia, unspecified; R73.9 Hyperglycemia, unspecified; A53.9 Syphilis, unspecified; M67.432 Ganglion, left wrist
CPT/HCPCS: 36415; 80053; 80061; 81001; 83036; 84153; 85025; 86592; 96127

== ENCOUNTER 2025-01-24 12:19 | Outpatient (AMB) | payer OTHER, SELFPAY ==
[2025-01-24 12:21] VITALS: BP 104/66; PULSE 97; RESP 17; TEMP 36.7; O2SAT 96; BMI 27.1
--- NOTE | 2025-01-24 12:21 | MHC.PC.OV ---
Vital Signs 01/24/25 12:21 Height 5 ft 11 in Weight 194 lb BMI 27.1 BP 104/66 Blood Pressure Location Rt brachial Position Sitting Respiration 17 Pulse 97 Pulse Source Pulse Oximeter Temp 98.0 F Temp Source Oral Pulse Oximetry (%) 96 Oxygen Delivery Method Room Air Intake Visit Reasons: Annual PE/PT needed r/s August appt Intake Note: Pt is here today for PE. Allergies No Known Allergies (No Known Allergies*) Allergy (Verified 01/24/25 12:23) Medication List - Last Reconciled 01/24/25 by Judith Russo MD No Known Home Meds Tobacco use date assessed: 01/24/25 Dental Screening Dental Screen Date: 08/04/23 HPI Annual PE/PT needed r/s August appt HPI Details Patient presents for physical. Patient complains of a growth on his left wrist tender when pressing on it for a few months. Patient denies any pain and swelling of wrist. 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 [facility] Medical History (Updated 01/24/25 @ 19:17 by Judith Russo MD) Pain Hyperglycemia Hyperlipidemia Syphilis Annual physical exam Right knee injury Shoulder pain, bilateral Gastroesophageal reflux disease without esophagitis Surgical History (Updated 01/24/25 @ 19:16 by Judith Russo MD) Hx of colonoscopy No pertinent past surgical history Family History Mother No problems noted. Father No problems noted. Social History Housing: House Patient Tobacco Use Status: Never used Tobacco e-Cigarette/Vaping Use: Never Used service: No Current occupational status: employed Cognitive needs: No Hearing needs: No Vision needs: No Questionnaire PHQ-9 Over the last 2 weeks, how often have you been bothered by any of the following problems? 1. Little interest or pleasure in doing things: not at all 2. Feeling down, depressed, or hopeless: not at all 3. Trouble falling or staying asleep, or sleeping too much: not at all 4. Feeling tired or having little energy: not at all 5. Poor appetite or overeating: not at all 6. Feeling bad about yourself - or that you are a failure or have let yourself or your family down: not at all 7. Trouble concentrating on things, such as reading the newspaper or watching television: not at all 8. Moving or speaking so slowly that other people could have noticed. Or the opposite - being so fidgety or restless that you have been moving around a lot more than usual: not at all 9. Thoughts that you would be better off or of hurting yourself in some way: not at all Total score: 0 Depression Screening Interpretation: Negative Depression Screening Done: Yes 94756 - PHQ-9 Billing: Yes Source: Developed by Drs. Kevin Norwood, Kourtney Marshall, Pierre Byrne and colleagues, with an educational lily from [facility]. Thrive Questionnaire Date Thrive assessed: 01/24/25 I am a: Patient What is your living situation today?: I have a steady place to live Within the past 12 months, did the food you bought not last and you didn't have the money to get more?: Never true Within the past 12 months, did you worry whether your food would run out before you got money to buy more?: Never true Do you have trouble paying for medicines?: No Do you have trouble getting transportation to medical appointments?: No Do you have trouble paying your heating and electricity bill?: No Do you have trouble taking care of your child, family member or friend?: No Do you have trouble with day-to-day activities such as bathing, preparing meals, shopping, managing finances, etc.?: No Are you currently unemployed and looking for a job?: No Are you interested in more education?: Yes Please select the resources that you would like help with: None Currently or been in a relationship where the following occur: No concerns reported THRIVE Score: 0 SALIMA-7 AMB Questionnaire SALIMA-7 Date SALIMA - 7 assessed: 01/24/25 Feeling nervous, anxious, or on edge: 0 = Not at all Not being able to stop or control worryin = Not at all Worrying too much about different things: 0 = Not at all Trouble relaxin = Not at all Being so restless that it is hard to sit still: 0 = Not at all Becoming easily annoyed or irritable: 0 = Not at all Feeling afraid as if something awful might happen: 0 = Not at all Total SALIMA-7 score (0-4 normal; 5-9 mild; 10-14 moderate; 15-21 severe): 0 Source: Developed by Drs. Kevin Norwood, Kourtney Marshall, Pierre Byrne and colleagues, with an educational lily from [facility]. SALIMA-7 Assessment Billing SALIMA-7 Assessment Tool: SALIMA-7 Assessment 60704 Review of Systems Const All systems reviewed & are unremarkable except as noted in HPI and below Eyes Reports no additional complaints ENT Reports no additional complaints Card Reports no additional complaints Resp Reports no additional complaints GI Reports no additional complaints Reports no additional complaints Physical exam (Primary Care) Vital Signs: Last Vital Signs Temp 98.0 F 01/24/25 12:21 Pulse 97 01/24/25 12:21 Resp 17 01/24/25 12:21 BP 104/66 01/24/25 12:21 Pulse Ox 96 01/24/25 12:21 Oxygen Delivery Method Room Air 01/24/25 12:21 BMI result Body Mass Index 27.1 Tobacco/Smoking Status: Tobacco use Status Tobacco use date assessed 01/24/25 01/24/25 12:27 Patient Tobacco Use Status Never used Tobacco 01/24/25 12:27 e-Cigarette/Vaping Use Never Used 01/24/25 12:27 PHQ-9: PHQ-9 Score PHQ-9: Total score 0 01/24/25 12:27 Depression Screening Interpretation: Negative Thrive Assessment: Date of Thrive Assessment Date Thrive assessed 01/24/25 01/24/25 12:27 Currently or been in a relationship where the following occur: No concerns reported Const General: no acute distress HENMT Head: Yes normal to inspection Ears: hearing grossly normal bilaterally Face and sinus: Yes normal facial exam Throat: Yes posterior oropharynx normal Eyes General: appearance normal, both eyes and all related structures Neck Neck: Yes no lymphadenopathy and Yes supple Resp Effort & Inspection: normal respiratory effort Auscultation: clear to auscultation bilaterally Cardio Rhythm: regular rhythm Heart sounds: S1 normal heart sound present and S2 normal heart sound present GI Inspection: Yes normal to inspection Palpation (GI): Soft to palpation Percussion: Yes normal to percussion Auscultation: normal bowel sounds Extrem Other: 2 cm soft mobile cyst on dorsum of left wrist General: Yes no clubbing, cyanosis or edema Coding Level of Care Code Est Pt Prev Care 40-64y(33501) Diagnoses Hyperlipidemia E78.5 Syphilis A53.9 Annual physical exam Z00.00 Ganglion cyst of dorsum of left wrist M67.432 Additional Codes SALIMA-7 Assessment Billing - SALIMA-7 Assessment Tool: SALIMA-7 Assessment 38279 ([id number]) PHQ-9 - 70828 - PHQ-9 Billing: Yes ([id number]) Assessment & Plan Assessment & Plan (1) Hyperlipidemia: Code(s): E78.5 - Hyperlipidemia, unspecified Category: Medical Plan: Continue low-cholesterol diet and will check lipid profile today (2) Syphilis: Comment: latent, s/p 3 doses of PCN 05/18, recheck RPR IN 6 months and 1 year Code(s): A53.9 - Syphilis, unspecified Category: Medical Plan: Check RPR (3) Annual physical exam: Code(s): Z00.00 - Encounter for general adult medical examination without abnormal findings Category: Medical Plan: Well-balanced diet regular physical activity discussed with the patient (4) Ganglion cyst of dorsum of left wrist: Code(s): M67.432 - Ganglion, left wrist Category: Medical Plan: Patient reassured but requested a referral to hand surgeon Orders: Orders Complete Blood Count Auto Diff Today A53.9 - Syphilis, unspecified, E78.5 - Hyperlipidemia, unspecified, R73.9 - Hyperglycemia, unspecified, R93.3 - Abnormal findings on diagnostic imaging of other parts of digestive tract Lipid Panel Today A53.9 - Syphilis, unspecified, E78.5 - Hyperlipidemia, unspecified, R73.9 - Hyperglycemia, unspecified, R93.3 - Abnormal findings on diagnostic imaging of other parts of digestive tract UA w Microscopic Today A53.9 - Syphilis, unspecified, E78.5 - Hyperlipidemia, unspecified, R73.9 - Hyperglycemia, unspecified, R93.3 - Abnormal findings on diagnostic imaging of other parts of digestive tract RPR Monitor reflex titer Today A53.9 - Syphilis, unspecified Comprehensive [place]. Panel Fast Today A53.9 - Syphilis, unspecified, E78.5 - Hyperlipidemia, unspecified, R73.9 - Hyperglycemia, unspecified, R93.3 - Abnormal findings on diagnostic imaging of other parts of digestive tract PSA,Total (Free>4and<10) Today A53.9 - Syphilis, unspecified, E78.5 - Hyperlipidemia, unspecified, R73.9 - Hyperglycemia, unspecified, R93.3 - Abnormal findings on diagnostic imaging of other parts of digestive tract Hemoglobin A1c Today A53.9 - Syphilis, unspecified, E78.5 - Hyperlipidemia, unspecified, R73.9 - Hyperglycemia, unspecified, R93.3 - Abnormal findings on diagnostic imaging of other parts of digestive tract Referrals Hand Surgery Referral M67.432 - Ganglion, left wrist
--- OUTSIDE RECORDS SUMMARY | 2025-01-24 13:44 | XMS_ITS | Clinical Summary ---
Author Organization [facility] ity Address [address] [place] [id number] Care Team Providers Care Diet Technician Registered Name Role Phone Unavailable Primary Care Provider [...] 2017 Zoster Vaccines (1 of 2) 2017 Depression Screening 03/27/2024 COVID-19 Vaccine (1 - 2023-2 5 season) 2024 Influenza Vaccine (#1) 2024 RSV Immunization Adult Patie nts (1 - 1-dose 75+ series) 2042 HIB Vaccines Aged Out No longer eligi [...]
== END 2025-01-24 19:21 | disposition home or self-care (01) ==
LOC: HO.HMCC 12:19
PROVIDERS: PCP Internal Medicine; Visit Provider Internal Medicine
DX: Z00.00 Encounter for general adult medical examination without abnormal findings (principal); E78.5 Hyperlipidemia, unspecified; A53.9 Syphilis, unspecified; M67.432 Ganglion, left wrist